=== PATIENT | male | born 1980 | race Caucasian/White ===

== ENCOUNTER → 2016-06-18 | Outpatient (REF) | payer BC ==
[~2016-06-18] MED LIST: FLON1SPR; NICO4GUM8 PO
[2016-06-18 13:08] LABS: MEAN CORPUSCULAR HEMOGLOBIN 30.9 pg (27.0-33.0); MEAN CORPUSCULAR HGB CONC 33.8 g/dl (32.0-36.5); MEAN CORPUSCULAR VOLUME 91.2 fl (80.0-96.0); RED CELL DISTRIBUTION WIDTH 12.5 % (11.5-14.5); WHITE BLOOD COUNT 9.8 K/mm3 (4.0-10.0)
[2016-06-18 13:19] LABS: ALBUMIN 4.4 GM/DL (3.2-5.2); ALBUMIN/GLOBULIN RATIO 1.57 (1.00-1.93); ALKALINE PHOSPHATASE 71 U/L (45-117); ALT/SGPT 57 U/L (12-78); ANION GAP 9 MEQ/L (8-16); AST/SGOT 31 U/L (15-37); BILIRUBIN,TOTAL 0.2 MG/DL (0.2-1.0); BLOOD UREA NITROGEN 20 MG/DL (7-18); CALCIUM LEVEL 9.4 MG/DL (8.5-10.1); CARBON DIOXIDE LEVEL 26 MEQ/L (21-32); CHLORIDE LEVEL 105 MEQ/L (98-107); CREATININE FOR GFR 0.91 MG/DL (0.70-1.30); GLOMERULAR FILTRATION RATE > 60.0 (>60); GLUCOSE, FASTING 101 MG/DL (70-105); POTASSIUM SERUM 4.2 MEQ/L (3.5-5.1); SODIUM LEVEL 140 MEQ/L (136-145); TOTAL PROTEIN 7.2 GM/DL (6.4-8.2)
== END ==
LOC: M SFHCADAM 08:55
PROVIDERS: ATTEND Physician Assistant
DX: R53.83 Other fatigue (principal); F17.200 Nicotine dependence, unspecified, uncomplicated; E78.5 Hyperlipidemia, unspecified; R68.82 Decreased libido

== ENCOUNTER 2016-08-18 11:00 | Emergency (ER) | payer BC ==
[2016-08-18 11:15] VITALS: BP 177/86
[2016-08-18] MEDS ORDERED: CYCL10TA (11:19)
[2016-08-18] MEDS ORDERED: VITA50003 (11:19)
== END 2016-08-18 12:55 | disposition left against medical advice (07) ==
LOC: EDBD 11:00 → M ED 12:51
DX: Z53.29 Procedure and treatment not carried out because of patient's decision for other reasons (principal)

== ENCOUNTER → 2016-08-19 | Outpatient (CLI) | payer BC ==
[~2016-08-19] MED LIST changes: +CYCL10TA; +VITA50003
--- NOTE | 2016-08-20 07:11 | REP ---
Clinical: Acute lower back pain. Technique: AP, lateral, coned-down views of the lumbosacral spine. Findings: Straightening of normal lordosis is nonspecific. There is no evidence for acute fracture / compression injury or subluxation. Advanced focal degenerative disc osteophyte complex at the L5-S1 level includes endplate sclerosis, disc space narrowing, osteophytosis and hypertrophic facet change. Impression: Advanced degenerative disc disease at the L5-S1 level. Signed by Demetri Case MD 08/20/2016 07:03 A
== END ==
LOC: M ADAMS 10:59
PROVIDERS: ATTEND Physician Assistant
DX: M51.37 Other intervertebral disc degeneration, lumbosacral region (principal)

== ENCOUNTER 2016-09-15 13:12 | Emergency (ER) | payer BC ==
[~2016-09-15] VITALS: Ht 188 cm; Wt 104.3 kg
[2016-09-15] MEDS ORDERED: ASPI1TAB PO (13:31)
[2016-09-15 14:15] LABS: BASO % 0.2 % (0.0-1.0); EOS # 0.4 K/mm3 (0.0-0.50); EOS % 2.4 % (0.0-3.0); LARGE UNSTAINED CELL # 0.1 K/mm3 (0.0-0.4); LARGE UNSTAINED CELL % 0.3 % (0.0-4.0); LYMPH # 1.2 K/mm3 (1.5-4.5); LYMPH % 7.7 % (24.0-44.0); MEAN CORPUSCULAR HEMOGLOBIN 30.4 pg (27.0-33.0); MEAN CORPUSCULAR HGB CONC 33.4 g/dl (32.0-36.5); MEAN CORPUSCULAR VOLUME 91.1 fl (80.0-96.0); MONO # 0.7 K/mm3 (0.0-0.8); MONO % 4.4 % (0.0-5.0); PLATELET COUNT, AUTOMATED 248 k/mm3 (150-450); RED CELL DISTRIBUTION WIDTH 12.4 % (11.5-14.5); WHITE BLOOD COUNT 15.3 K/mm3 (4.0-10.0)
[2016-09-15] MEDS ORDERED: NS 500 ML IV ONE ×2 (14:15→15:30)
[2016-09-15] MEDS ORDERED: KETOROLAC 30 MG/ML VIAL (J1885) IV ONE (14:15)
[2016-09-15] MEDS ORDERED: ONDANSETRON 4MG/2ML VIAL (J2405) IV ONE ×2 (14:15→15:30)
[2016-09-15 14:20] LABS: ANION GAP 8 MEQ/L (8-16); BLOOD UREA NITROGEN 17 MG/DL (7-18); CALCIUM LEVEL 8.7 MG/DL (8.5-10.1); CARBON DIOXIDE LEVEL 23 MEQ/L (21-32); CHLORIDE LEVEL 109 MEQ/L (98-107); CREATININE FOR GFR 0.98 MG/DL (0.70-1.30); GLOMERULAR FILTRATION RATE > 60.0 (>60); GLUCOSE, FASTING 95 MG/DL (70-105); POTASSIUM SERUM 3.9 MEQ/L (3.5-5.1); SODIUM LEVEL 140 MEQ/L (136-145)
[2016-09-15] MEDS ORDERED: ZOFR4TAB3 PO (16:05)
[2016-09-15 16:33] VITALS: BP 138/63
--- NOTE | 2016-09-17 06:31 | ECGEPIP ---
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
== END 2016-09-15 16:36 | disposition home or self-care (01) ==
LOC: EDBD 13:12 → M ED 14:06
DX: R55 Syncope and collapse (principal); R11.0 Nausea; F17.200 Nicotine dependence, unspecified, uncomplicated; Z79.82 Long term (current) use of aspirin
CPT/HCPCS: 80048; 83735; 84443; 85025; 93005; 93041; 94760; 96361; 96374; 99285; J1885; J2405

== ENCOUNTER 2016-10-02 11:07 | Emergency (ER) | payer BC ==
[~2016-10-02] VITALS: Ht 188 cm; Wt 104.5 kg
[~2016-10-02 11:07] MED LIST changes: +ASPI1TAB PO; +ZOFR4TAB3 PO
[2016-10-02] MEDS ORDERED: VITA50003 (11:17)
[2016-10-02] MEDS ORDERED: NS 500 ML IV ONE (12:30)
[2016-10-02] MEDS ORDERED: ASPIRIN 81 MG CHEW TABLET PO ONE (12:30)
[2016-10-02 12:45] LABS: ALBUMIN 4.2 GM/DL (3.2-5.2); ALBUMIN/GLOBULIN RATIO 1.27 (1.00-1.93); ALKALINE PHOSPHATASE 61 U/L (45-117); ALT/SGPT 47 U/L (12-78); ANION GAP 8 MEQ/L (8-16); AST/SGOT 18 U/L (15-37); BILIRUBIN,DIRECT 0.1 MG/DL (0.0-0.2); BILIRUBIN,TOTAL 0.5 MG/DL (0.2-1.0); BLOOD UREA NITROGEN 15 MG/DL (7-18); CALCIUM LEVEL 9.1 MG/DL (8.5-10.1); CARBON DIOXIDE LEVEL 24 MEQ/L (21-32); CHLORIDE LEVEL 107 MEQ/L (98-107); CREATININE FOR GFR 0.96 MG/DL (0.70-1.30); GLOMERULAR FILTRATION RATE > 60.0 (>60); GLUCOSE, FASTING 93 MG/DL (70-105); POTASSIUM SERUM 3.8 MEQ/L (3.5-5.1); SODIUM LEVEL 139 MEQ/L (136-145); TOTAL PROTEIN 7.5 GM/DL (6.4-8.2)
[2016-10-02 13:15] LABS: BASO # 0.1 K/mm3 (0.0-0.2); BASO % 1.1 % (0.0-1.0); EOS # 0.3 K/mm3 (0.0-0.50); EOS % 3.2 % (0.0-3.0); LARGE UNSTAINED CELL # 0.2 K/mm3 (0.0-0.4); LARGE UNSTAINED CELL % 1.9 % (0.0-4.0); LYMPH % 30.2 % (24.0-44.0); MEAN CORPUSCULAR HEMOGLOBIN 31.1 pg (27.0-33.0); MEAN CORPUSCULAR HGB CONC 33.9 g/dl (32.0-36.5); MEAN CORPUSCULAR VOLUME 91.6 fl (80.0-96.0); MONO # 0.4 K/mm3 (0.0-0.8); MONO % 4.3 % (0.0-5.0); NEUTROPHILS # 5.9 K/mm3 (1.8-7.7); NEUTROPHILS % 59.4 % (36.0-66.0); PLATELET COUNT, AUTOMATED 308 k/mm3 (150-450); RED CELL DISTRIBUTION WIDTH 12.1 % (11.5-14.5); WHITE BLOOD COUNT 9.8 K/mm3 (4.0-10.0)
[2016-10-02] MEDS ORDERED: ISOVUE-370 76% 100ML VIAL (Q9967) As Ordered ONE (13:22)
[2016-10-02 14:01] LABS: ERYTHROCYTE SEDIMENTATION RATE 3 mm/hr (0-15)
--- NOTE | 2016-10-02 14:11 | REP ---
CT ANGIOGRAM CHEST: TECHNIQUE: Axial contrast enhanced images from the thoracic inlet to the upper abdomen using 100 mL Isovue 370 intravenous contrast material with multiplanar reformations. The pulmonary arteries demonstrate good opacification and no evidence for pulmonary embolism. The thoracic aorta is normal in caliber with no dissection. The heart is normal in size. There is no evidence of mediastinal or hilar adenopathy. There is no pleural or pericardial effusion. The lungs are free of infiltrate. There are degenerative changes of the spine. The visualized upper abdominal structures appear unremarkable. IMPRESSION: No CT evidence of pulmonary embolism. Signed by Ronald Yoon MD 10/02/2016 07:48 P
[2016-10-02 15:54] VITALS: BP 131/75
--- NOTE | 2016-10-02 16:31 | ECGEPIP ---
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
== END 2016-10-02 16:01 | disposition home or self-care (01) ==
LOC: M ED 12:06
DX: F41.0 Panic disorder [episodic paroxysmal anxiety] (principal); Z86.79 Personal history of other diseases of the circulatory system; F17.200 Nicotine dependence, unspecified, uncomplicated; Z82.49 Family history of ischemic heart disease and other diseases of the circulatory system; Z79.899 Other long term (current) drug therapy; Z79.82 Long term (current) use of aspirin
CPT/HCPCS: 36415; 71275; 80048; 80076; 82550; 82553; 83880; 84443; 85025; 85652; 86140; 93005; 93041; 94760; 99285; Q9967

== ENCOUNTER 2016-10-16 14:38 | Day surgery (SDC) | payer BC ==
[~2016-10-16] VITALS: Ht 188 cm; Wt 104.5 kg
[~2016-10-16 14:38] MED LIST changes: +DESFLURANE 240 ML INHALANT As Ordered ONE; +VITA1CAP40; -VITA50003
[2016-10-16] MEDS ORDERED: LACTATED RINGER'S 1000 ML IV ONE (15:00)
[2016-10-16] MEDS ORDERED: LR 1,000 ML IV SCH ×2 (15:00→20:00)
[2016-10-16] MEDS ORDERED: LIDOCAINE 1% SDV INJ 30 ML VIAL As Ordered ONE (17:06)
[2016-10-16] MEDS ORDERED: CONRAY-60 60% 50ML VIAL (Q9961) As Ordered ONE (17:09)
[2016-10-16] MEDS ORDERED: MIDAZOLAM INJ 2 MG/2 ML VIAL (J2250) As Ordered ONE (17:41)
[2016-10-16] MEDS ORDERED: fentaNYL 100 MCG/2 ML INJECTION (J3010) As Ordered ONE (17:43)
[2016-10-16] MEDS ORDERED: PROPOFOL 500 MG/50 ML VIAL As Ordered ONE ×2 (17:44→19:03)
[2016-10-16] MEDS ORDERED: ONDANSETRON 4MG/2ML VIAL (J2405) As Ordered ONE (19:01)
[2016-10-16] MEDS ORDERED: dexameTHASONE 4 MG/ML 1ML VIAL (J1100) As Ordered ONE (19:01)
[2016-10-16] MEDS ORDERED: PERCOCET 5MG/325MG TAB As Ordered ONE (19:58)
[2016-10-16] MEDS ORDERED: ONDANSETRON 4MG/2ML VIAL (J2405) IV PRN (20:00)
[2016-10-16] MEDS ORDERED: fentaNYL 100 MCG/2 ML INJECTION (J3010) IV PRN (20:00)
[2016-10-16] MEDS ORDERED: PERCOCET 5MG/325MG TAB PO PRN (20:15)
[2016-10-16] MEDS ORDERED: ACETAMINOPHEN TAB 650MG DOSE (2X325MG) PO PRN (20:15)
[2016-10-16] MEDS ORDERED: zolPIDEM CR 6.25MG TABLET (AMBIEN CR) PO PRN (20:15)
[2016-10-16 20:30] VITALS: BP 148/62
[2016-10-16 21:30] VITALS: BP 150/98
[2016-10-16] MEDS: ASCORBIC ACID 250 MG TAB PO SCH (22:25)
[2016-10-16 22:30] VITALS: BP 168/68
[2016-10-16 23:30] VITALS: BP 168/70
[2016-10-17 04:45] VITALS: BP 158/68
--- NOTE | 2016-10-17 06:07 | RO ---
DATE OF PROCEDURE: 10/16/2016 PREOPERATIVE DIAGNOSES: 1. Recurrent vasovagal syncope. 2. Implantable loop recorder in situ. POSTOPERATIVE DIAGNOSES: 1. Recurrent vasovagal syncope. 2. Successful removal of implantable loop recorder. FINDINGS: 1. Recurrent vasovagal syncope. 2. Successful removal of implantable loop recorder. PROCEDURE PERFORMED: 1. Implantation of Biotronik permanent dual-chamber pacemaker system. 2. Removal of Medtronic LINQ implantable loop recorder. SURGEON: Rodo Jane MD TYPEWRITER ASSEMBLY AND PARTS INSPECTOR: None. ANESTHESIA: Lidocaine 1%/monitored anesthetic care. SPECIMENS: Old Medtronic LINQ implantable loop recorder. ESTIMATED BLOOD LOSS: Less than 20 mL. No blood products replaced. No drains. No complications. DESCRIPTION OF PROCEDURE: The patient was prepped and draped over the left anterior chest. Lidocaine 1% was used for local anesthetic. A single left subclavian vein venogram was performed with injection of a total volume of 20 mL of mixture consisting of 3-to-1 contrast/normal saline injected via an antecubital vein in the left upper extremity and this was used to localize the extrathoracic portion of the left axillary vein in real time by percutaneous technique with a micropuncture needle. This was then guidewire exchanged for a guidewire that came with on of the 7-Tanzanian sheaths. Next, an incision was made with a [employer] Energytronic PEAK PlasmaBlade approximately 2-1/2 inches in length 1 cm below the skin entry site of the guidewire and approximately parallel to the left clavicle. The PEAK PlasmaBlade was used to get through the fatty layer and through the fibrous Rg's fascia. I then performed a pacemaker pocket using blunt dissection using two fingers to separate the prepectoral fascia from the Rg's fascia in a caudal direction. Next, the guidewire was pulled through the skin into the incision site. Next, I obtained a separate venous access at the level of the pectoral muscle with another micropuncture needle going more lateral to the first guidewire and using the first guidewire as a fluoroscopic marker. This was then guidewire exchanged for a guidewire that came with the other 6-Tanzanian sheath. Next, a Peel-Away sheath was placed over the more lateral of the guidewires and advanced into the vein. This was used for vein access for the right ventricle lead. The right ventricle lead was placed under fluoroscopic guidance into the vicinity of the right ventricle apex under fluoroscopic guidance and was secured with a total of 15 turns. This position was found to be electrically and anatomically satisfactory. The 6-Tanzanian sheath was then broken apart and removed, and the ventricular lead secured to the pectoral muscle with the supplied tie-down sleeve using two individual sutures consisting of #0 Ethibond with each suture first tied to the muscle and then around a notch on the sleeve. 10 volts high output pacing was also performed on the ventricle lead and no diaphragm stimulation could be felt on either side by palpation of the diaphragm. Next, the other 6-Tanzanian sheath was placed over the more medial of the guidewires and advanced into the vein and was used for vein access for the right atrial lead. The first position tried for the right atrial lead was not satisfactory with a high capture threshold of 1.8 volts at 0.4 milliseconds without improvement. The decision was therefore made to unscrew the helix and try another atrial position using a longer curved preformed J-stylet. The second position was satisfactory and the atrial lead was secured with a total of 14 turns. Next, the sheath atrial lead was broken apart and removed. The atrial lead was secured to the pectoral muscle with the supplied tie-down sleeve using #0 Ethibond suture material using two separate sutures to secure to the pectoral muscle in the same fashion as was performed for the ventricle lead. Next, another #0 Ethibond suture was placed to the pectoral muscle to serve as the tie-down for the pacemaker pulse generator. The terminal pins of the respective ventricle and atrial leads was then placed into the header of the pacemaker pulse generator and each one was secured by tightening the setscrews with the hex screwdriver. The excess lead material was then coiled underneath the pacemaker pulse generator and placed along with the pacemaker pulse generator with the pacemaker into the pacemaker pocket with the excess lead material below and the pacemaker pulse generator on top. Next, the deep layer was closed using individual sutures consisting of #2-0 Vicryl. The more superficial layer was then closed using individual sutures consisting of #3-0 Vicryl. The skin was then closed using swathi. Next, attention was turned to the removal of the implantable loop recorder. After application of lidocaine, a small incision approximately a centimeter in length was made perpendicular to the long axis of the more medial end of the implantable loop recorder with PEAK PlasmaBlade. The loop recorder was then easily removed with DeBakey forceps. A single deep suture was placed to help approximate the incision consisting of #2-0 Vicryl. The skin was then closed using #4-0 Biosyn subcuticular suture with the free ends at the level of the skin allowed to be untied. Tension was then placed on both ends of the Biosyn suture to approximate the incision and two layers of Dermabond was applied. After the Dermabond was dry, the Dermabond suture was snipped at both ends at the level of the skin. The pacemaker pulse generator implanted was a SideSteproniCytoVale Eluna 8 DR-T with serial #[id number]. The right ventricle lead implanted was a Biotronik Solia F60 with serial #[id number]. Testing in the operating room in bipolar configuration for the right ventricle lead showed capture threshold of 0.6 volts at 0.4 ms with R wave amplitude of 17.2 mV and lead impedance of 721 ohms. The right atrial lead implanted was a Biotronik Solia, serial #[id number] with final testing in the operating room showing a capture of 0.8 volts at 0.4 ms with P wave amplitude of 2.8 mV and lead impedance of 565 ohms. Patient tolerated these procedures well without any immediate complications. When I saw the patient in the preoperative area earlier today to update the history and physical, I had a conversation with the patient and his and explained to him that there was no guarantee that placement of the pacemaker would necessarily completely resolve vasovagal syncope but that I was optimistic that it should help considerably. Patient and his understood this and the patient very much wanted to proceed with implantation of the pacemaker. JENNA
--- NOTE | 2016-10-17 06:53 | REP ---
Chest x-ray: Single view. History: Postop. Comparison chest x-ray March 30, 2012. Findings: A left subclavian transvenous bipolar pacemaker is seen in place in the right heart. There is no evidence of pneumothorax. Lung farooq are clear. Impression: Bipolar pacemaker in the right heart via the left side. No evidence of pneumothorax. Signed by Hayder Burt MD 10/17/2016 07:58 A
--- NOTE | 2016-10-17 06:53 | REP ---
Partial chest x-ray: Single view. History: Pacemaker placement. 5 minutes 34 seconds of fluoroscopy time is reported. Findings: A single fluoroscopically obtained last image hold spot radiograph of the chest documents pacemaker lead placement. Signed by Hayder Burt MD 10/17/2016 07:58 A
[2016-10-17 07:30] VITALS: BP 143/95
--- NOTE | 2016-10-17 07:59 | REP ---
Clinical: Post Op - pacemaker placement. Comparison: 10/16/2016. Technique: PA and lateral. Findings: The mediastinum and cardiac silhouette are normal. Pacemaker in satisfactory position. The lung farooq are clear and without acute consolidation, effusion, or pneumothorax. The skeletal structures are intact and normal. Impression: 1. No acute cardiopulmonary process. Signed by Demetri Case MD 10/17/2016 07:50 A
[2016-10-17] MEDS: ASCORBIC ACID 250 MG TAB PO SCH (08:01)
[2016-10-17 12:30] VITALS: BP 160/90
--- NOTE | 2016-10-23 09:51 | ECGEPIP ---
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
== END 2016-10-17 15:07 | disposition home or self-care (01) ==
LOC: M SDC 14:38 → M PCU 21:00 → M SDC 10-17 15:07
PROVIDERS: ATTEND Internal Medicine Cardiovascular Disease
DX: R55 Syncope and collapse (principal); Z95.818 Presence of other cardiac implants and grafts
CPT/HCPCS: 33208; 33284; 71010; 71020; 76000; 93005; C1785; C1898; J0690; J1100; J2250; J2405; J3010; Q9961

== ENCOUNTER → 2017-02-28 | Outpatient (REF) | payer BC ==
[~2017-02-28] MED LIST changes: -DESFLURANE 240 ML INHALANT As Ordered ONE
== END ==
LOC: M LAB REF 13:45
PROVIDERS: ATTEND Nurse Practitioner Adult Health
DX: R40.0 Somnolence (principal)

== ENCOUNTER → 2017-03-10 | Outpatient (CLI) | payer BC ==
--- NOTE | 2017-03-11 12:13 | SLEEPCENT ---
DATE OF PROCEDURE: 03/10/2017 ORDERED BY: Shama Roberts NP Nocturnal polysomnography was performed for evaluation of sleep physiology in this patient with a history of excessive somnolence and nonrestorative sleep. 8 hours and 49 minutes of data were reviewed. There were 484 minutes of sleep identified. Sleep latency was normal at 88.5 minutes. Rapid eye movement (REM) latency was mildly delayed at 105 minutes. Sleep architecture was fair with fragmentation, good sleep progression and 5 REM cycles. The overall sleep efficiency was 92.6%. The electrocardiogram showed a sinus rhythm with an average heart rate of 72 beats per minute. Rate variability was seen surrounding respiratory events. Rate ranged 55-95 beats per minute. EEG showed reasonably normal waveforms for awake and sleep. There were 63 respiratory events identified of 10 seconds in duration or greater for an apnea-hypopnea index of 9.1. The events were not exclusive to sleep stage nor body posture. Arousals from respiratory events occurred 4 times per hour and oxygen desaturations were seen into the 80s. There was some limb activity, but limb movement arousals were few and remaining measures of sleep physiology were normal. IMPRESSION: Obstructive sleep apnea syndrome (G47.33), apnea-hypopnea index 9.1. RECOMMENDATION: Patient should be encouraged to return to the sleep disorder center for pressure therapy. In the interim, alcohol and sedative avoidance should be practiced and caution exercised during the operation of motor vehicles.
== END ==
LOC: M SLEEP 19:35
PROVIDERS: ATTEND Nurse Practitioner Adult Health
DX: G47.33 Obstructive sleep apnea (adult) (pediatric) (principal)

== ENCOUNTER → 2017-04-01 | Outpatient (REF) | payer BC ==
[2017-04-01 19:58] LABS: MEAN CORPUSCULAR HEMOGLOBIN 29.8 pg (27.0-33.0); MEAN CORPUSCULAR HGB CONC 33.4 g/dl (32.0-36.5); MEAN CORPUSCULAR VOLUME 89.1 fl (80.0-96.0); PLATELET COUNT, AUTOMATED 294 10^3/uL (150-450); RED CELL DISTRIBUTION WIDTH 12.2 % (11.5-14.5); WHITE BLOOD COUNT 9.1 10^3/uL (4.0-10.0)
[2017-04-01 20:50] LABS: ALBUMIN 4.7 GM/DL (3.2-5.2); ALBUMIN/GLOBULIN RATIO 1.52 (1.00-1.93); ALKALINE PHOSPHATASE 58 U/L (45-117); ALT/SGPT 85 U/L (12-78); ANION GAP 7 MEQ/L (8-16); AST/SGOT 39 U/L (7-37); BILIRUBIN,TOTAL 0.4 MG/DL (0.2-1.0); BLOOD UREA NITROGEN 16 MG/DL (7-18); CALCIUM LEVEL 9.3 MG/DL (8.5-10.1); CARBON DIOXIDE LEVEL 27 MEQ/L (21-32); CHLORIDE LEVEL 106 MEQ/L (98-107); CREATININE FOR GFR 1.05 MG/DL (0.70-1.30); GLOMERULAR FILTRATION RATE > 60.0 (>60); GLUCOSE, FASTING 88 MG/DL (70-105); POTASSIUM SERUM 4.9 MEQ/L (3.5-5.1); SODIUM LEVEL 140 MEQ/L (136-145); TOTAL PROTEIN 7.8 GM/DL (6.4-8.2)
[2017-04-03 14:17] LABS: PSA TOTAL 0.7 ng/mL (0.0-4.0)
== END ==
LOC: M SFHCADAM 12:15
PROVIDERS: ATTEND Physician Assistant
DX: R39.198 Other difficulties with micturition (principal); N52.9 Male erectile dysfunction, unspecified

== ENCOUNTER → 2017-04-16 | Outpatient (REF) | payer BC | LOC: M SMT 13:49 | DX: R35.0 Frequency of micturition (principal) | CPT/HCPCS: 81001 ==

== ENCOUNTER → 2017-04-18 | Outpatient (CLI) | payer BC | LOC: M SLEEP 19:29 | DX: G47.33 Obstructive sleep apnea (adult) (pediatric) (principal) | CPT/HCPCS: 95811 ==

== ENCOUNTER → 2017-08-06 | Outpatient (REF) | payer OTHER ==
[2017-08-06 13:24] LABS: ALBUMIN 4.4 GM/DL (3.2-5.2); ALBUMIN/GLOBULIN RATIO 1.52 (1.00-1.93); ALKALINE PHOSPHATASE 61 U/L (45-117); ALT/SGPT 38 U/L (12-78); ANION GAP 8 MEQ/L (8-16); AST/SGOT 25 U/L (7-37); BILIRUBIN,TOTAL 0.3 MG/DL (0.2-1.0); BLOOD UREA NITROGEN 21 MG/DL (7-18); CALCIUM LEVEL 9.2 MG/DL (8.5-10.1); CARBON DIOXIDE LEVEL 25 MEQ/L (21-32); CHLORIDE LEVEL 108 MEQ/L (98-107); CREATININE FOR GFR 0.98 MG/DL (0.70-1.30); GLOMERULAR FILTRATION RATE > 60.0 (>60); GLUCOSE, FASTING 96 MG/DL (70-100); POTASSIUM SERUM 4.6 MEQ/L (3.5-5.1); SODIUM LEVEL 141 MEQ/L (136-145); TOTAL PROTEIN 7.3 GM/DL (6.4-8.2)
== END ==
LOC: M SFHCADAM 09:34
DX: R74.8 Abnormal levels of other serum enzymes (principal)

== ENCOUNTER → 2017-10-06 | Outpatient (CLI) | payer OTHER ==
[2017-10-06 12:38] LABS: BASO % 0.4 % (0.0-1.0); EOS # 0.4 10^3/uL (0.0-0.50); EOS % 5.3 % (0.0-3.0); HEMATOCRIT 48.9 % (42.0-52.0); HEMOGLOBIN 16.5 g/dl (13.5-17.5); IMMATURE GRANULOCYTE % 0.1 % (0-3.0); LYMPH # 2.5 10^3/uL (1.5-4.5); LYMPH % 32.1 % (24.0-44.0); MEAN CORPUSCULAR HEMOGLOBIN 29.6 pg (27.0-33.0); MEAN CORPUSCULAR HGB CONC 33.7 g/dl (32.0-36.5); MEAN CORPUSCULAR VOLUME 87.6 fl (80.0-96.0); MONO # 0.6 10^3/uL (0.0-0.8); MONO % 7.2 % (0.0-5.0); NEUTROPHILS # 4.3 10^3/uL (1.8-7.7); NEUTROPHILS % 54.9 % (36.0-66.0); PLATELET COUNT, AUTOMATED 305 10^3/uL (150-450); RED BLOOD COUNT 5.58 10^6/uL (4.30-6.10); RED CELL DISTRIBUTION WIDTH 12.1 % (11.5-14.5); WHITE BLOOD COUNT 7.8 10^3/uL (4.0-10.0)
[2017-10-06 14:14] LABS: ALBUMIN 4.5 GM/DL (3.2-5.2); ALBUMIN/GLOBULIN RATIO 1.25 (1.00-1.93); ALKALINE PHOSPHATASE 72 U/L (45-117); ALT/SGPT 48 U/L (12-78); AMYLASE 39 U/L (25-115); ANION GAP 11 MEQ/L (8-16); AST/SGOT 21 U/L (7-37); BILIRUBIN,TOTAL 0.4 MG/DL (0.2-1.0); BLOOD UREA NITROGEN 17 MG/DL (7-18); CALCIUM LEVEL 9.9 MG/DL (8.5-10.1); CARBON DIOXIDE LEVEL 28 MEQ/L (21-32); CHLORIDE LEVEL 103 MEQ/L (98-107); CREATININE FOR GFR 1.05 MG/DL (0.70-1.30); GLOMERULAR FILTRATION RATE > 60.0 (>60); GLUCOSE, FASTING 96 MG/DL (70-100); LIPASE 98 U/L (73-393); POTASSIUM SERUM 4.5 MEQ/L (3.5-5.1); SODIUM LEVEL 142 MEQ/L (136-145); TOTAL PROTEIN 8.1 GM/DL (6.4-8.2)
== END ==
LOC: M ADAMS 10:38
DX: R06.02 Shortness of breath (principal); R10.9 Unspecified abdominal pain

== ENCOUNTER → 2018-01-16 | Outpatient (REF) | payer OTHER ==
[2018-01-16 20:35] LABS: ALBUMIN 4.6 GM/DL (3.2-5.2); ALBUMIN/GLOBULIN RATIO 1.59 (1.00-1.93); ALKALINE PHOSPHATASE 66 U/L (45-117); ALT/SGPT 65 U/L (12-78); ANION GAP 10 MEQ/L (8-16); AST/SGOT 31 U/L (7-37); BILIRUBIN,TOTAL 0.2 MG/DL (0.2-1.0); BLOOD UREA NITROGEN 22 MG/DL (7-18); CALCIUM LEVEL 9.5 MG/DL (8.5-10.1); CARBON DIOXIDE LEVEL 26 MEQ/L (21-32); CHLORIDE LEVEL 105 MEQ/L (98-107); CHOLESTEROL LEVEL 271 MG/DL (<200); CHOLESTEROL RISK RATIO 9.033 (<5); GLOMERULAR FILTRATION RATE > 60.0 (>60); GLUCOSE, FASTING 80 MG/DL (70-100); HDL CHOLESTEROL 30 MG/DL (>40); NON-HDL-C 241 MG/DL; POTASSIUM SERUM 4.1 MEQ/L (3.5-5.1); SODIUM LEVEL 141 MEQ/L (136-145); TOTAL PROTEIN 7.5 GM/DL (6.4-8.2); TRIGLYCERIDES LEVEL 421 MG/DL (<150)
== END ==
LOC: M SFHCADAM 16:47
DX: E78.5 Hyperlipidemia, unspecified (principal); E55.9 Vitamin D deficiency, unspecified

== ENCOUNTER → 2018-11-05 | Outpatient (REF) | payer OTHER ==
[~2018-11-05] MED LIST changes: -ASPI1TAB PO; +ASPI81TA26 PO; -VITA1CAP40; +VITA50005; +ZOFR4TAB14 PO; -ZOFR4TAB3 PO
[2018-11-05 13:39] LABS: ALT/SGPT 47 U/L (12-78); BILIRUBIN,TOTAL 0.4 MG/DL (0.2-1.0); BLOOD UREA NITROGEN 21 MG/DL (7-18); CALCIUM LEVEL 9.6 MG/DL (8.5-10.1); CARBON DIOXIDE LEVEL 29 MEQ/L (21-32); CHLORIDE LEVEL 106 MEQ/L (98-107); CREATININE FOR GFR 1.07 MG/DL (0.70-1.30); GLOMERULAR FILTRATION RATE > 60.0 (>60); GLUCOSE, FASTING 92 MG/DL (70-100); POTASSIUM SERUM 5.3 MEQ/L (3.5-5.1); SODIUM LEVEL 141 MEQ/L (136-145)
[2018-11-05 13:40] LABS: ALBUMIN 4.5 GM/DL (3.2-5.2); CHOLESTEROL LEVEL 243 MG/DL (<200); CHOLESTEROL RISK RATIO 5.785 (<5); FREE T4 0.93 NG/DL (0.76-1.46); HDL CHOLESTEROL 42 MG/DL (>40); LDL CHOLESTEROL 177 MG/DL (<100); NON-HDL-C 201 MG/DL; TOTAL PROTEIN 7.5 GM/DL (6.4-8.2); TRIGLYCERIDES LEVEL 121 MG/DL (<150)
== END ==
LOC: M SFHCADAM 08:54
PROVIDERS: ATTEND Physician Assistant
DX: E78.5 Hyperlipidemia, unspecified (principal)

== ENCOUNTER → 2019-01-20 | Outpatient (CLI) | payer OTHER ==
--- NOTE | 2019-01-20 19:47 | REP ---
CT brain without contrast: History: Altered mental status. Comparison head CT study July 28, 2009. CT findings: Digital preliminary mailmaster radiograph is unremarkable. Bone window settings demonstrate an intact bony calvarium. Visualized paranasal sinuses are clear. No intraorbital abnormality is seen. On soft tissue window settings, wells-white differentiation pattern is intact. There is no evidence intracranial hemorrhage, mass, infarct or midline shift. Impression: Negative CT study of the brain. Electronically Signed by Hayder Burt MD 01/21/2019 08:01 A
== END ==
LOC: M RAD 16:49
PROVIDERS: ATTEND Psychiatry & Neurology Neurology
DX: R41.82 Altered mental status, unspecified (principal); R20.2 Paresthesia of skin

== ENCOUNTER 2019-02-08 08:41 | Emergency (ER) | payer OTHER ==
[2019-02-08] MEDS ORDERED: TOPI100T9 (09:12)
[2019-02-08] MEDS ORDERED: TOPI25TA10 (09:12)
[2019-02-08 09:21] LABS: BASO # 0.1 10^3/uL (0.0-0.2); BASO % 0.5 % (0.0-1.0); EOS # 0.3 10^3/uL (0.0-0.5); EOS % 3.5 % (0.0-3.0); HEMATOCRIT 48.8 % (42.0-52.0); HEMOGLOBIN 16.7 g/dl (13.5-17.5); LYMPH # 2.4 10^3/uL (1.5-5.0); LYMPH % 25.4 % (24.0-44.0); MEAN CORPUSCULAR HEMOGLOBIN 30.3 pg (27.0-33.0); MEAN CORPUSCULAR HGB CONC 34.2 g/dl (32.0-36.5); MEAN CORPUSCULAR VOLUME 88.4 fl (80.0-96.0); MONO # 0.6 10^3/uL (0.0-0.8); MONO % 6.4 % (0.0-5.0); NEUTROPHILS # 6.1 10^3/uL (1.5-8.5); NEUTROPHILS % 63.8 % (36.0-66.0); PLATELET COUNT, AUTOMATED 289 10^3/uL (150-450); RED BLOOD COUNT 5.52 10^6/uL (4.30-6.10); WHITE BLOOD COUNT 9.5 10^3/uL (4.0-10.0)
[2019-02-08 09:29] LABS: ABG BASE EXCESS -2.3 (-2.0-2.0); ABG HCO3 21.1 MEQ/L (22.0-26.0); ABG O2 SATURATION 93.6 % (95.0-99.0); ABG PARTIAL PRESSURE CO2 33.2 mmHg (35.0-45.0); ABG PARTIAL PRESSURE O2 65.7 mmHg (75.0-100.0); ABG STANDARD HCO3 22.5 MEQ/L (22.0-26.0); ABG TOTAL CO2 22.2 MEQ/L (22.0-29.0); ABG pH (ARTERIAL) 7.422 UNITS (7.350-7.450)
--- NOTE | 2019-02-08 09:44 | REP ---
CT brain: 02/08/2019. Indication: Altered mental status. Stroke. Comparison: 02/24/2015. Technique: Axial unenhanced CT images of the brain were obtained from skull base to vertex. Findings: There is no acute intracranial hemorrhage, acute cortical infarction, mass effect or hydrocephalous. The visualized paranasal sinuses and mastoid air cells are clear. Impression: No acute intracranial process. Electronically Signed by Rashaad Espinal DO 02/08/2019 09:35 A
[2019-02-08 10:00] LABS: ALBUMIN 4.7 GM/DL (3.2-5.2); ALT/SGPT 64 U/L (12-78); BILIRUBIN,DIRECT 0.1 MG/DL (0.0-0.2); BILIRUBIN,TOTAL 0.6 MG/DL (0.2-1.0); BLOOD UREA NITROGEN 23 MG/DL (7-18); CALCIUM LEVEL 10.1 MG/DL (8.5-10.1); CARBON DIOXIDE LEVEL 24 MEQ/L (21-32); CHLORIDE LEVEL 106 MEQ/L (98-107); CK-MB VALUE MASS 2.8 NG/ML (<3.6); CPK CREATINE PHOSPHOKINASE 401 U/L (39-308); CREATININE FOR GFR 1.23 MG/DL (0.70-1.30); ETHYL ALCOHOL (ETHANOL) < 0.003 % (0.000-0.010); GLOMERULAR FILTRATION RATE > 60.0 (>60); GLUCOSE, FASTING 94 MG/DL (70-100); POTASSIUM SERUM 4.3 MEQ/L (3.5-5.1); SALICYLATE LEVEL < 1.7 MG/DL (5.0-30.0); SODIUM LEVEL 138 MEQ/L (136-145); TOTAL PROTEIN 8.2 GM/DL (6.4-8.2); TROPONIN I < 0.02 NG/ML (< 0.10)
[2019-02-08 10:01] LABS: ACETAMINOPHEN LEVEL < 2.0 UG/ML (10.0-30.0)
--- NOTE | 2019-02-08 10:08 | REP ---
CHEST, SINGLE VIEW: There is no evidence of acute infiltrate. No pleural effusion is seen. The heart is normal in size. The mediastinal silhouette is unremarkable. The visualized osseous structures are intact. Left dual-lead pacemaker is again noted. IMPRESSION: No acute pulmonary disease. Electronically Signed by Ronald Yoon MD 02/09/2019 05:28 P
[2019-02-08 10:23] LABS: AMPHETAMINES LEVEL URINE NEGATIVE (NEGATIVE); BARBITURATES URINE NEGATIVE (NEGATIVE); BENZODIAZEPINES URINE NEGATIVE (NEGATIVE); CANNABINOIDS URINE NEGATIVE (NEGATIVE); COCAINE METABOLITE URINE NEGATIVE (NEGATIVE); METHADONE URINE NEGATIVE (NEGATIVE); OPIATES URINE NEGATIVE (NEGATIVE); PHENCYCLIDINE URINE NEGATIVE (NEGATIVE)
[2019-02-08 11:11] VITALS: BP 144/82
--- NOTE | 2019-02-09 10:00 | ECGEPIP ---
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
[2019-02-09] MEDS ORDERED: KEPP10002 PO (10:23)
== END 2019-02-08 11:12 | disposition home or self-care (01) ==
LOC: M ED 08:41 → EDBD 08:41 → M ED 11:12
DX: R55 Syncope and collapse (principal); Z95.0 Presence of cardiac pacemaker; R94.31 Abnormal electrocardiogram [ECG] [EKG]; G43.909 Migraine, unspecified, not intractable, without status migrainosus; Z79.82 Long term (current) use of aspirin; Z79.899 Other long term (current) drug therapy
CPT/HCPCS: 36600; 70450; 71045; 80048; 80076; 80307; 82550; 82553; 82803; 84443; 84484; 85025; 93005; 93041; 99285; G0480

== ENCOUNTER 2019-02-09 07:44 | Emergency (ER) | payer OTHER ==
[~2019-02-09] VITALS: Ht 188 cm; Wt 109.0 kg
[~2019-02-09 07:44] MED LIST changes: +TOPI100T9; +TOPI25TA10
[2019-02-09 08:22] LABS: BASO % 0.6 % (0.0-1.0); EOS # 0.4 10^3/uL (0.0-0.5); EOS % 6.5 % (0.0-3.0); HEMATOCRIT 44.4 % (42.0-52.0); HEMOGLOBIN 15.4 g/dl (13.5-17.5); LYMPH # 2.9 10^3/uL (1.5-5.0); LYMPH % 42.5 % (24.0-44.0); MEAN CORPUSCULAR HEMOGLOBIN 30.2 pg (27.0-33.0); MEAN CORPUSCULAR HGB CONC 34.7 g/dl (32.0-36.5); MEAN CORPUSCULAR VOLUME 87.1 fl (80.0-96.0); MONO # 0.4 10^3/uL (0.0-0.8); MONO % 6.4 % (0.0-5.0); NEUTROPHILS % 43.9 % (36.0-66.0); PLATELET COUNT, AUTOMATED 284 10^3/uL (150-450); WHITE BLOOD COUNT 6.8 10^3/uL (4.0-10.0)
--- NOTE | 2019-02-09 08:45 | REP ---
CT brain: 02/09/2019. Comparison: Yesterday. Indication: Headache. Dizziness. Technique: Unenhanced axial CT images of the brain were obtained from skull base to vertex. Findings: There is no acute intracranial hemorrhage, acute cortical infarction, mass effect, hydrocephalus or significant fluid within the visualized paranasal sinuses/mastoid air cells. Impression: No acute intracranial process. Electronically Signed by Rashaad Espinal DO 02/09/2019 08:36 A
--- NOTE | 2019-02-09 08:45 | REP ---
CHEST, SINGLE VIEW: There is no evidence of acute infiltrate. No pleural effusion is seen. The heart is normal in size. The mediastinal silhouette is unremarkable. The visualized osseous structures are intact. Left dual lead pacemaker is again noted. IMPRESSION: No acute pulmonary disease. Electronically Signed by Ronald Yoon MD 02/10/2019 11:39 A
[2019-02-09 08:53] LABS: ACETAMINOPHEN LEVEL < 2.0 UG/ML (10.0-30.0); ALBUMIN 4.4 GM/DL (3.2-5.2); ALT/SGPT 48 U/L (12-78); BILIRUBIN,DIRECT 0.1 MG/DL (0.0-0.2); BILIRUBIN,TOTAL 0.7 MG/DL (0.2-1.0); BLOOD UREA NITROGEN 21 MG/DL (7-18); CALCIUM LEVEL 9.6 MG/DL (8.5-10.1); CARBON DIOXIDE LEVEL 23 MEQ/L (21-32); CHLORIDE LEVEL 107 MEQ/L (98-107); CK-MB VALUE MASS 1.9 NG/ML (<3.6); CPK CREATINE PHOSPHOKINASE 295 U/L (39-308); CREATININE FOR GFR 1.27 MG/DL (0.70-1.30); ETHYL ALCOHOL (ETHANOL) < 0.003 % (0.000-0.010); GLOMERULAR FILTRATION RATE > 60.0 (>60); GLUCOSE, FASTING 109 MG/DL (70-100); MB/CK RELATIVE INDEX 0.64 (< OR =4); POTASSIUM SERUM 3.9 MEQ/L (3.5-5.1); SALICYLATE LEVEL < 1.7 MG/DL (5.0-30.0); SODIUM LEVEL 139 MEQ/L (136-145); TOTAL PROTEIN 7.6 GM/DL (6.4-8.2); TROPONIN I < 0.02 NG/ML (< 0.10)
[2019-02-09] MEDS ORDERED: levETIRAcetam INJection 1,000 MG in D5W 100 ML IV ONE (09:15)
[2019-02-09 09:44] LABS: AMPHETAMINES LEVEL URINE NEGATIVE (NEGATIVE); BARBITURATES URINE NEGATIVE (NEGATIVE); BENZODIAZEPINES URINE NEGATIVE (NEGATIVE); CANNABINOIDS URINE NEGATIVE (NEGATIVE); COCAINE METABOLITE URINE NEGATIVE (NEGATIVE); METHADONE URINE NEGATIVE (NEGATIVE); OPIATES URINE NEGATIVE (NEGATIVE); PHENCYCLIDINE URINE NEGATIVE (NEGATIVE)
[2019-02-09 10:15] VITALS: BP 138/68
[2019-02-09] MEDS ORDERED: KEPP10002 PO (10:23)
--- NOTE | 2019-02-09 10:29 | ECGEPIP ---
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
== END 2019-02-09 10:32 | disposition home or self-care (01) ==
LOC: M ED 07:44
DX: R56.9 Unspecified convulsions (principal); Z95.5 Presence of coronary angioplasty implant and graft; Z79.899 Other long term (current) drug therapy; Z87.891 Personal history of nicotine dependence
CPT/HCPCS: 70450; 71045; 80048; 80076; 80307; 82550; 82553; 84443; 84484; 85025; 93005; 93041; 94760; 96365; 99291; G0480; J1953

== ENCOUNTER → 2022-04-26 | Outpatient (REF) | payer OTHER ==
[~2022-04-26] MED LIST changes: +CYCL-707; -CYCL10TA; +KEPP10002 PO
[2022-04-26 12:55] LABS: HEMATOCRIT 45.5 % (42.0-52.0); HEMOGLOBIN 14.8 g/dl (13.5-17.5); MEAN CORPUSCULAR HEMOGLOBIN 30.3 pg (27.0-33.0); MEAN CORPUSCULAR HGB CONC 32.5 g/dl (32.0-36.5); PLATELET COUNT, AUTOMATED 283 10^3/uL (150-450); RED BLOOD COUNT 4.89 10^6/uL (4.30-6.10); WHITE BLOOD COUNT 8.9 10^3/uL (4.0-10.0)
[2022-04-26 13:27] LABS: ALBUMIN 4.8 G/DL (3.2-5.2); ALKALINE PHOSPHATASE 61 U/L (46-116); ALT/SGPT 56 U/L (7.0-40); AST/SGOT 34 U/L (<34); BILIRUBIN,TOTAL 0.6 MG/DL (0.3-1.2); BLOOD UREA NITROGEN 25 MG/DL (9-23); CALCIUM LEVEL 10.1 MG/DL (8.5-10.1); CARBON DIOXIDE LEVEL 26 MMOL/L (20-31); CHLORIDE LEVEL 103 MMOL/L (98-107); CHOLESTEROL LEVEL 167 MG/DL (<200); CHOLESTEROL RISK RATIO 4.22 (<5); CREATININE FOR GFR 0.92 MG/DL (0.70-1.30); GLOMERULAR FILTRATION RATE > 60.0 (>60); GLUCOSE, FASTING 84 MG/DL (60-100); HDL CHOLESTEROL 39.5 MG/DL (>40); LDL CHOLESTEROL 111.7 MG/DL (<100); NON-HDL-C 128 MG/DL; POTASSIUM SERUM 4.6 MMOL/L (3.5-5.1); SODIUM LEVEL 139 MMOL/L (136-145); THYROID STIMULATING HORMONE 1.229 uIU/ML (0.55-4.78); TOTAL PROTEIN 7.3 G/DL (5.7-8.2); TRIGLYCERIDES LEVEL 79 MG/DL (<150)
[2022-04-26 13:28] LABS: FREE T4 1.17 NG/DL (0.89-1.76)
== END ==
LOC: M SFHCADAM 08:22
PROVIDERS: ATTEND Physician Assistant
DX: R55 Syncope and collapse (principal); D68.52 Prothrombin gene mutation; G47.33 Obstructive sleep apnea (adult) (pediatric); Z99.89 Dependence on other enabling machines and devices; E78.5 Hyperlipidemia, unspecified; I10 Essential (primary) hypertension